=== PATIENT | female | born 1965 ===

== ENCOUNTER 2023-03-13 11:06 | Outpatient (CLI) | payer OTHER, SELFPAY ==
--- NOTE | 2023-03-13 11:31 | DI.RAD_ITS ---
Exam(s) XR HIP LT COMPLETE AP PELVIS EXAM: XR HIP LT COMPLETE AP PELVIS INDICATION: eval L hip OA. COMPARISON: CR ORTHO PELVIS AP VIEW from 03/06/2021 TECHNIQUE: 2D digital imaging was performed. Three views. FINDINGS: There is severe narrowing of the superior left hip joint space, with a [id number] appearance. Ther e is periarticular spurring, sclerosis and subchondral cyst formation. The findings have progressed from the prior exam. The right hip joint space is maintained. Of the SI joints and pubic symphysis are unremarkable. Advanced degenerative changes are noted in the lower lumbar spine. IMPRESSION: Severe degenerative changes of the left hip. DATA REPOSITORY: RADIATION DOSE DELIVERED:
== END 2023-03-13 11:07 | disposition home or self-care (01) ==
LOC: DIORS 11:06
PROVIDERS: PCP Family Medicine; Referring Provider Family Medicine; Visit Provider Student in an Organized Health Care Education/Training Program
DX: M16.12 Unilateral primary osteoarthritis, left hip (principal)
CPT/HCPCS: 73502

== ENCOUNTER 2023-04-23 02:20 | Outpatient (CLI) | payer OTHER, SELFPAY ==
[2023-04-23 14:51] LABS: HCT 40.2 % (36.0-46.0); MCHC 32.3 % (32.0-36.0); MCV 90 fL (80-95); MPV 9.3 fL (8.0-11.0); Platelet Count 277 10^3/uL (130-400); RBC 4.49 10^6/uL (3.93-5.22); RDW 12.5 % (11.7-14.6); RDW-SD 41.1 fL; WBC 7.03 10^3/uL (4.4-10.8)
[2023-04-23 15:11] LABS: Anion Gap 5.1 mmol/L (3-11); BUN 21 mg/dL (7-18); CO2 30.9 mmol/L (21.0-32.0); CREATININE 0.8 mg/dL (0.55-1.02); Calcium 8.8 mg/dL (8.5-10.1); Chloride 105 mmol/L (98-107); Estimated GFR 84.82 (mL/min/1.73m2); Glucose 99 mg/dL (74-106); Potassium 3.4 mmol/L (3.5-5.1); Sodium 141 mmol/L (136-145)
== END 2023-04-23 02:21 | disposition home or self-care (01) ==
LOC: LBO 02:20 → LBN 14:40
PROVIDERS: PCP Family Medicine; Visit Provider Student in an Organized Health Care Education/Training Program
DX: M25.552 Pain in left hip (principal); M16.12 Unilateral primary osteoarthritis, left hip; Z01.818 Encounter for other preprocedural examination; Z01.812 Encounter for preprocedural laboratory examination
CPT/HCPCS: 80048; 85027

== ENCOUNTER 2023-05-06 06:03 | Day surgery (SDC) | payer OTHER, SELFPAY ==
[2023-05-06] VITALS (12 sets, daily range): BP systolic 94–168; BP diastolic 58–90; PULSE 56–66; RESP 16–24; TEMP 35.9–36.6; O2SAT 96–99; BMI 49.4
--- NOTE | 2023-05-06 05:46 | ANES.PREOP_ITS ---
General Info Date of Service Date Performed: 05/06/23 Height: 5 ft 2 in Weight: 122.47 kg Body Mass Index (BMI): 49.4 Surgical Procedure: Operation Date: 05/06/23 07:50 Proposed Procedure Side Surgeon p Hip Total Hip Anterior, ACTIS Std Left Bony Chapa MD Meds Allergies and Home Medications Allergies Allergy/AdvReac Type Severity Reaction Status Date / Time lisinopril AdvReac Mild COUGH Verified 05/06/23 06:11 SEASONAL Allergy Mild Uncoded 05/06/23 06:11 Home Medication Medication Instructions Recorded aspirin 81 mg tablet,delayed 81 mg PO DAILY 01/29/23 release (Adult Aspirin Regimen) atenolol 50 mg tablet 50 mg PO DAILY 01/29/23 diltiazem HCl 120 mg 120 mg PO DAILY 01/29/23 capsule,extended release 24 hr furosemide 20 mg tablet 20 mg PO DAILY 01/29/23 levothyroxine 25 mcg capsule 25 mcg PO DAILY 01/29/23 meclizine 25 mg tablet 25 mg PO TID PRN 01/29/23 potassium chloride 20 mEq 20 meq PO DAILY 01/29/23 tablet,extended release rosuvastatin 20 mg tablet 20 mg PO DAILY 01/29/23 meloxicam 15 mg tablet 15 mg PO DAILY 04/23/23 ibuprofen 800 mg tablet 800 mg PO TID 05/06/23 Current Visit Medications: Current Medications Generic Name Dose Route Start Last Admin Trade Name Freq PRN Reason Stop Dose Admin Acetaminophen 1,000 mg 05/06/23 06:00 Acetaminophen 500 Mg Tab PO 05/06/23 18:00 PREOP LORENA Celecoxib 400 mg 05/06/23 06:00 Celecoxib 200 Mg Cap PO 05/06/23 18:00 PREOP LORENA Tranexamic Acid 1,000 mg/ 60 mls @ 360 mls/hr 05/06/23 06:00 Sodium Chloride IV 05/06/23 18:00 PREOP LORENA Cefazolin Sodium 3,000 mg/ 100 mls @ 200 mls/hr 05/06/23 06:00 Sodium Chloride IVPB 05/06/23 16:00 PREOP LORENA Ringer's Solution 1,000 mls @ 80 mls/hr 05/06/23 06:00 IV 06/04/23 23:59 INFUSION [facility] IV Miscellaneous Supplies 1 each 05/06/23 06:00 Iv Access IV 06/04/23 23:59 DIRECTED LORENA Sodium Chloride 0 ml 05/06/23 06:00 Normal Saline Flush 10 Ml Syr IV 06/04/23 23:59 PRN PRN Sodium Chloride 0 ml 05/06/23 06:00 Normal Saline 10 Ml Vial IJ 06/04/23 23:59 DIRECTED PRN Sterile Water 0 ml 05/06/23 06:00 Water,Injection,Sterile 10 Ml Vial IJ 06/04/23 23:59 DIRECTED PRN PFSH Active Problems Active Problems: Problem Status Onset Code Aortic root dilatation I77.810 Aortic valve stenosis I35.0 Asthma J45.909 Hypertension I10 Chest pain R07.9 GERD (gastroesophageal reflux disease) K21.9 Hyperlipidemia E78.5 Hypothyroidism E03.9 Obesity E66.9 Osteoarthritis of left hip M16.12 Medical History Medical History Aneurysm Per pt. states it was right at the arch, and had it surgically corrected when i did the valve replacement 2006 Esophagitis Migraine Surgical History Surgical History (Updated 05/06/23 @ 06:16 by Nano Marquez) H/O: hysterectomy History of aortic valve replacement 2006-f/U with cardiology 01/2023 History of carpal tunnel release of both wrists History of laparoscopic cholecystectomy History of surgery on left wrist History of tonsillectomy and adenoidectomy uvular removed pt. reports Hx of colonoscopy Previous section Tobacco Smoking/Tobacco Use Status: Former Tobacco Use Alcohol Alcohol Intake: never Substance Use Substance use: Daily Substance use type: marijuana Vital Signs and Lab Results Vital Signs Comment Vital Signs Comment:: Temp Pulse Resp BP Pulse Ox 36.5 C 65 18 168/83 H 99 05/06/23 06:20 05/06/23 06:20 05/06/23 06:20 05/06/23 06:20 05/06/23 06:20 Lab Results Blood Type / Crossmatch: No Data to Display Complete Blood Count: White Blood Count 7.03 10^3/uL (4.4-10.8) 04/23/23 14:30 Red Blood Count 4.49 10^6/uL (3.93-5.22) 04/23/23 14:30 Hemoglobin 13.0 g/dL (11.2-15.7) 04/23/23 14:30 Hematocrit 40.2 % (36.0-46.0) 04/23/23 14:30 Platelet Count 277 10^3/uL (130-400) 04/23/23 14:30 Complete Metabolic Panel: Sodium 141 mmol/L (136-145) 04/23/23 14:30 Potassium 3.4 mmol/L (3.5-5.1) L 04/23/23 14:30 Chloride 105 mmol/L (98-107) 04/23/23 14:30 Carbon Dioxide 30.9 mmol/L (21.0-32.0) 04/23/23 14:30 BUN 21 mg/dL (7-18) H 04/23/23 14:30 Creatinine 0.8 mg/dL (0.55-1.02) 04/23/23 14:30 Est GFR (CKD-EPI 2020) 84.82 (mL/min/1.73m2) 04/23/23 14:30 Calcium 8.8 mg/dL (8.5-10.1) 04/23/23 14:30 Glucose 99 mg/dL (74-106) 04/23/23 14:30 Liver Function Panel: No Data to Display Coagulation Panel: No Data to Display Cardiac Panel: No Data to Display Arterial Blood Gas: No Data to Display Venous Blood Gas: No Data to Display Pancreas Panel: No Data to Display Thyroid Panel: No Data to Display Infectious Disease: No Data to Display Blood Cultures: No Data to Display Toxicology Panel: No Data to Display Anesthesia Assessment and Plan Anesthesia History Personal History: No History of Anesthesia Complications Family History: No Family History of Anesthesia Complications Exercise Tolerance Exercise Tolerance: Metabolic Equivalents<4 Pertinent Negatives Pertinent Negatives: No Symptoms of GERD (off meds right now, occ GeRd, none today), No Major Cardiovascular Symptoms or Complaints and No Major Pulmonary Symptoms or Complaints Cardiac & Pulmonary Exam Cardiac Exam: Normal S1/S2 Heart Sounds Pulmonary Exam: Clear Bilateral Breath Sounds Cardiac and Pulmonary Comment:: Hx of AVR and aortic root repair 10/2022 EKG normal, Stress test with SPECT imaging negative, Angiogram non- obstructive coronary artery disease per [facility] [place] Implantable Cardiac Device Does patient have a Pacemaker or an ICD?: No Airway Exam Known Difficult Airway: No Mallampati Class: 4 Mouth Opening: Normal (> 3cm) Thyromental Distance: Greater than 3 cm Neck Range of Motion: Full ROM Neck Circumference: Thick Teeth Condition: Removable Dentures/Plates Upper and Edentulous ASA Classification ASA Score: ASA 3 Emergency Case?: No NPO Status NPO Status: NPO Clears >2 hours, Solids >8 hours Anesthesia Plan Resuscitation Status: Full Code Anesthesia Technique: Spinal Anesthesia Airway Planned: Natural Airway Monitors Used: Standard Monitors
[2023-05-06] MEDS: Celecoxib 200 MG CAP 400 MG PO (06:33)
[2023-05-06] MEDS: Acetaminophen 500 MG TAB 1000 MG PO (06:33)
--- NOTE | 2023-05-06 07:00 | DI.RAD_ITS ---
Exam(s) XR HIP LT IN OR EXAM: XR HIP LT IN OR CLINICAL HISTORY: left osteoarthritis TECHNIQUE: 2D and realtime digital imaging was performed. CONTRAST MATERIAL: Refer to procedure report. COMPARISON: CR XR HIP LT COMPLETE AP PELVIS from 03/13/2023 FINDINGS: Fluoroscopy was provided for Dr. Chapa during the performance of a left total hip replacement. P lease refer to the procedure report for complete details. Ka,r=6.28 mGy IMPRESSION: RADIATION DOSE DELIVERED:
[2023-05-06] MEDS: Lactated Ringers 1,000 ML 80 ML IV (07:15)
--- NOTE | 2023-05-06 07:17 | PDOC.DSDIS_ITS ---
Date of service: 05/06/23 Time of Service: 07:17 Discharge Plan Disposition Patient Disposition: Home Condition: Good Discharge Details Reason For Visit: L THR Attending Provider: Bony Chapa Primary Care Provider: CELENA ZIMMER Home Meds and New Rx's Prescriptions: New acetaminophen 500 mg tablet 1,000 mg PO TID Qty: 90 3RF aspirin 81 mg tablet,delayed release (DR/EC) 81 mg PO BID Qty: 60 0RF celecoxib 200 mg capsule 200 mg PO BID Qty: 60 0RF pantoprazole 40 mg tablet,delayed release (DR/EC) 40 mg PO DAILY Qty: 30 0RF dexamethasone 4 mg tablet 4 mg PO DAILY Qty: 2 0RF oxycodone 5 mg tablet 5 mg PO Q4H MDD 6 tabs PRN (Reason: pain) Qty: 20 0RF Continued atenolol 50 mg tablet 50 mg PO DAILY diltiazem HCl 120 mg capsule,extended release 24hr 120 mg PO DAILY furosemide 20 mg tablet 20 mg PO DAILY levothyroxine 25 mcg capsule 25 mcg PO DAILY meclizine 25 mg tablet 25 mg PO TID PRN potassium chloride 20 mEq tablet extended release 20 meq PO DAILY rosuvastatin 20 mg tablet 20 mg PO DAILY Discontinued meloxicam 15 mg tablet 15 mg PO DAILY aspirin [Adult Aspirin Regimen] 81 mg tablet,delayed release (DR/EC) 81 mg PO DAILY ibuprofen 800 mg Tablet 800 mg PO TID Discharge Instructions Additional Instructions: Total Hip Discharge Instructions Activity: The most important activity is to walk. You should try to take short walks a few times a day. You have no restrictions on movement or positioning, but do not try to force what you do. You will find some stiffness and weakness with hip flexion (lifting your knee). Do not try to strengthen this too early, continue to practice walking and stairs and this will come. - Outpatient physical therapy can be helpful to help return you to a normal gait and improve your flexibility and strength. This can start around 2 weeks. For some patients, it?s not necessary. Usually this is determined at the time of discharge or at the first post-operative visit. - You should wear the ARNALDO hose on both legs for 2 weeks. Dressing: Keep the surgical dressing in place for at least one week. After the first week it may be removed and replace with light gauze and tape or nothing. It may get wet after 3 days but avoid soaking the dressing. If it gets wet, just lightly pat dry. It is important to always keep some gauze between skin folds, especially when you are sitting. Spend some time with the wound exposed when you are lying flat as the incision does wrinkle onto itself. Medications: - You should take Tylenol and an anti-inflammatory Celebrex as your primary pain control medications. If the Celebrex is too expensive or not covered, please call the office for another alternative (Advil/Ibuprofen or Naproxen/Aleve). - You have been prescribed a stronger pain medication Oxycodone for breakthrough pain, take as needed as prescribed. - You have also been prescribed a stomach acid reduction agent Pantoprozole to help reduce stomach acid and reflux. - You have also been prescribed Decadron to help with post-operative nausea and pain. You will take this for two days starting tomorrow. - You will be taking Aspirin 81mg twice a day for DVT prevention unless instructed otherwise. - If you have constipation you should take Colace or Miralax (both [id number]). It takes most people 3-4 days to have a bowel movement. Follow-up: 2 weeks If you have any acute concerns or questions, please do not hesitate to contact the office at [phone]. You may contact Dr. Chapa with any questions after hours through the hospital at [phone] or on his cell phone at [phone]. Referrals: Bony Chapa MD [ [facility] STAFF PHYSICIAN] - Equipment/Supplies: Walker Activity:: Activity as Tolerated Shower/Bathe:: 72 hours Diet:: As Tolerated DS: Diagnosis Discharge Diagnosis (1) Osteoarthritis of left hip: Status: Acute
[2023-05-06] MEDS: ceFAZolin 3,000 MG in Normal Saline 100 ML 200 MG IVPB (07:24)
--- NOTE | 2023-05-06 09:00 | PDOC.DSDIS_ITS ---
Date of service: 05/06/23 Time of Service: 09:03 Discharge Plan Disposition Patient Disposition: Home Condition: Good Discharge Details Reason For Visit: L THR Attending Provider: Bony Chapa Primary Care Provider: CELENA ZIMMER Home Meds and New Rx's Prescriptions: New acetaminophen 500 mg tablet 1,000 mg PO TID Qty: 90 3RF aspirin 81 mg tablet,delayed release (DR/EC) 81 mg PO BID Qty: 60 0RF celecoxib 200 mg capsule 200 mg PO BID Qty: 60 0RF pantoprazole 40 mg tablet,delayed release (DR/EC) 40 mg PO DAILY Qty: 30 0RF dexamethasone 4 mg tablet 4 mg PO DAILY Qty: 2 0RF oxycodone 5 mg tablet 5 mg PO Q4H MDD 6 tabs PRN (Reason: pain) Qty: 20 0RF Continued atenolol 50 mg tablet 50 mg PO DAILY diltiazem HCl 120 mg capsule,extended release 24hr 120 mg PO DAILY furosemide 20 mg tablet 20 mg PO DAILY levothyroxine 25 mcg capsule 25 mcg PO DAILY meclizine 25 mg tablet 25 mg PO TID PRN potassium chloride 20 mEq tablet extended release 20 meq PO DAILY rosuvastatin 20 mg tablet 20 mg PO DAILY Discontinued meloxicam 15 mg tablet 15 mg PO DAILY aspirin [Adult Aspirin Regimen] 81 mg tablet,delayed release (DR/EC) 81 mg PO DAILY ibuprofen 800 mg Tablet 800 mg PO TID Discharge Instructions Additional Instructions: Total Hip Discharge Instructions Activity: The most important activity is to walk. You should try to take short walks a few times a day. You have no restrictions on movement or positioning, but do not try to force what you do. You will find some stiffness and weakness with hip flexion (lifting your knee). Do not try to strengthen this too early, continue to practice walking and stairs and this will come. - Outpatient physical therapy can be helpful to help return you to a normal gait and improve your flexibility and strength. This can start around 2 weeks. For some patients, it?s not necessary. Usually this is determined at the time of discharge or at the first post-operative visit. - You should wear the ARNALDO hose on both legs for 2 weeks. Dressing: Keep the surgical dressing in place for at least one week. After the first week it may be removed and replace with light gauze and tape or nothing. It may get wet after 3 days but avoid soaking the dressing. If it gets wet, just lightly pat dry. It is important to always keep some gauze between skin folds, especially when you are sitting. Spend some time with the wound exposed when you are lying flat as the incision does wrinkle onto itself. Medications: - You should take Tylenol and an anti-inflammatory Celebrex as your primary pain control medications. If the Celebrex is too expensive or not covered, please call the office for another alternative (Advil/Ibuprofen or Naproxen/Aleve). - You have been prescribed a stronger pain medication Oxycodone for breakthrough pain, take as needed as prescribed. - You have also been prescribed a stomach acid reduction agent Pantoprozole to help reduce stomach acid and reflux. - You have also been prescribed Decadron to help with post-operative nausea and pain. You will take this for two days starting tomorrow. - You will be taking Aspirin 81mg twice a day for DVT prevention unless instructed otherwise. - If you have constipation you should take Colace or Miralax (both [id number]). It takes most people 3-4 days to have a bowel movement. Follow-up: 2 weeks If you have any acute concerns or questions, please do not hesitate to contact the office at [phone]. You may contact Dr. Chapa with any questions after hours through the hospital at [phone] or on his cell phone at [phone]. Referrals: Bony Chapa MD [ [facility] STAFF PHYSICIAN] - Equipment/Supplies: Walker Activity:: Activity as Tolerated Shower/Bathe:: 72 hours Diet:: As Tolerated DS: Diagnosis Discharge Diagnosis (1) Osteoarthritis of left hip: Status: Acute
[2023-05-06] MEDS: fentaNYL 100 MCG/2 ML VIAL IVP ×4 (09:05→09:45)
--- NOTE | 2023-05-06 09:08 | W.PM.OP ---
Date of service: 05/06/23 Time of Service: 08:45 Operative Note Operative Note DATE OF PROCEDURE: 05/06/23 PRE-OP DIAGNOSIS: Left Hip Osteoarthritis POST-OP DIAGNOSIS: same PROCEDURE: Left Anterior Total Hip Arthroplasty with Intraoperative Navigation SURGEON: Bony Chapa PEARLER: Ashkan Hopper ANESTHESIA TYPE: Spinal Refer to Anesthesia Record ESTIMATED BLOOD LOSS: 150 PATHOLOGY: none sent TOURNIQUET TIME: 0 COMPLICATIONS: None Patient was transported to: PACU Patient's condition: stable Implants: 1. Depuy [place] Acetabular Component, 52mm 2. Depuy Acetabular Liner, [id number] 3. Depuy Actis Standard Collared Femoral Stem, Size 4 4. Depuy Altrx Ceramic Femoral Head, Size 36+1.5mm Indications: I have seen Carol Ann in clinic for symptoms of hip arthritis, confirmed with radiographic findings. She has exhausted nonoperative methods and was having significant limitations in daily function and desired better function and less pain. I discussed the technical details of a hip replacement. I explained the risks of the procedure to include, but not limited to, bleeding, infection, pain, stiffness, fracture, damage to nerves and vessels, damage to muscles and tendons, loosening, instability, leg length inequality, need for repeat procedure, blood clot and cardiopulmonary demise. Despite these risks, Carol Ann elected to proceed. Findings: There was significant signs of arthritis throughout the hip with complete loss of cartilage and large osteophytes. Procedure Description: Carol Ann was greeted in the preoperative holding area where the correct side was identified and marked. The consent was reviewed with the patient and signed. The history and physical was updated. All questions were answered. She was taken back to the operating room. A spinal anesthestic was then administered. The feet were wrapped with cast padding and Coban and then placed into the boot liners and then into the boots. Care was taken to protect the skin and make sure the heels were fully down and the boots were stable. The patient was then positioned onto the HANA table. Both legs were held in a neutral position. SCDs were applied. The patient was then slid down onto a peroneal post. Prophylactic antibiotics in the form of Cefazolin were administered. 1g of Tranxemic Acid was given intravenously within 30 minutes of incision. The left leg was then prepped with Chloraprep and draped in a standard fashion. A second prep with Chloraprep was performed prior to placement of a shower-curtain type drape with Iodine impregnated skin protection. A timeout to confirm correct identity, side and site, procedure, allergies, anesthesia, and medical concerns was performed. An obliquely oriented incision was made starting lateral to the ASIS and running distal over the Tensor Fascia Violeta (TFL) muscle belly toward the fibular head, approximately 10cm. The skin and soft tissue was dissected sharply, through Gloria?s fascia, and to the fascia of the TFL. With the fascia and superior border of the IT band identified, the fascia was incised with a new knife just above any perforators from the IT band. The TFL muscle belly was bluntly dissected away from the fascia and moved laterally. The fat between TFL and rectus was identified to ensure the dissection was not within the TFL. Blunt dissection created space between abductors and the capsule and retractor was placed over the lateral femoral neck. The fibers of the rectus femoris tendon were identified and these were freed from the anterior capsule. A second cobra retractor was placed around the medial femoral neck. The TFL was further retracted laterally to show the deep fascia. Careful dissection through this layer identified three main crossing vessels of the lateral femoral circumflex. These were cauterized in multiple locations and then cut without any noticeable bleeding. The TFL was further released bluntly from the deep fascia to expose anterior hip capsule and fat The Bernardo orthopaedic retractor was then placed beneath the TFL and against sartorius and medial soft tissues to protect and retract the soft tissues. A T-capsulotomy was then performed starting at the superior lateral acetabulum and moving distally to the intertrochanteric ridge. These capsular flaps were tagged with a No. 1 Ethibond and elevated from within. The capsular flaps were released to the shoulder of the lateral neck and to the lesser trochanter to give excellent visualization of the proximal femur. A neck osteotomy was performed using an oscillating saw based on preoperative templates. This cut started in the shoulder and of the lateral neck and exited medially. The saw was at all times directed medially to avoid injury to the greater trochanter. Gross traction was applied to the leg and the osteotomy opened. The femoral head was removed with a corkscrew, making sure to protect the TFL on its exit. Traction was released after head removal. This was measured on the back table to determine the starting reamer size. Portions of the rectus obscuring visualization were minimally elevated off the superior acetabulum. An anterior retractor was placed over the anterior wall between capsule and labrum and attached to the Gripper retraction system. The femur was rotated to 90 degrees and medial capsule was fully released until the lesser trochanter was palpable and visible; the femur was returned to 30 degrees. A posterior retractor was placed similarly between capsule and labrum. This provided excellent visualization. The contents of the cotyloid fossa were removed with electrocautery and the labrum was removed with a knife. There was a notable floor osteophyte. There was significant chondromalacia of the superior acetabulum. Acetabular reaming began with a 48mm reamer. This first reaming was directed anterior to posterior and medial to get down to the true floor. This was inspected and reamed until the true floor was reached. The anterior retractor was then released and entry and exit was provided by traction on the capsular flaps. I then reamed sequentially up to a 52mm reamer where good fit was obtained. The larger reamers were oriented based on anatomical reference of the anterior and lateral alcantar to ensure proper abduction and anteversion. Positioning and size was confirmed with the fluoroscopy. A 52mm Depuy [place] acetabular component was selected. The acetabulum was reamed around the periphery with the selected acetabular size to prevent a rim fit. The deep tissues were irrigated. The acetabular component was then impacted in a position of about 40-45 degrees of abduction and 15-20 degrees of anteversion, using the patient?s anatomy as the ultimate landmark. Fluoroscopy was used to confirm this. There was excellent administrative assistant receptionist of the acetabular component and the inserting handle was removed. The acetabular liner, Depuy [id number] polyethylene liner, was inserted and lined up with the tines of the acetabular component. There was no soft tissue interposition. The liner was then impacted into position and confirmed to be well-seated. A portion of the dillon-articular cocktail was then injected around the acetabulum into the capsule and periosteum. This cocktail consisted of 123mg of Ropivacaine, 0.25mg of Epinephrine, 0.04mg of Clonidine, and 15mg of Ketorolac, diluted to 50cc. The leg was rotated to 120 degrees. Any remaining medial capsule was released until the lesser trochanter was easily palpable. A retractor was placed medially. The lateral capsule was further released into the shoulder to allow access to the greater trochanter. A Duque retractor was placed over the greater trochanter which allowed the trochanter to flip in front of the capsule for excellent exposure. The leg was brought down into maximal extension and 20 degrees of adduction while ensuring there was no impingement on the acetabulum. Any remnant capsule within the trochanter was released. Piriformis and obturator externis were identified and protected. There was excellent access to the proximal femur. The lateral neck remnant was removed with a rongeur. A blunt canal probe was used to identify the canal and trajectory for later broaching. A box osteotome initiated the broach course. A small curved rasp and a curved curette were used to work laterally. Broaching then began with a starter Actis broach. This was inserted manually around the trochanter and into the canal before mallet blows. The broach was seated to a few millimeters below the cut level based on the neck cut and the preoperative template. Sequential broaching was continued with the GrouPAYse pneumatic broaching device until a tight fit was obtained with good rotational control of the femur. A trial standard neck was inserted along with a +1.5 trial head. The leg was brought out of extension and adduction and then reduced with traction and internal rotation. The leg was stable anteriorly in a position of 30 degrees of extension and 90 degrees of external rotation. Fluoroscopy was used to ensure there was no fracture and the stem was seated well. Leg lengths were checked with an AP pelvis and pelvic reference points. [employer] navigation system was used to confirm appropriate positioning and leg length and offset. Once content with the desired offset and leg lengths, the leg was brought back into extension, external rotation and adduction. The periosteum and surrounding tissue was injected with remaining portion of the dillon-articular cocktail. The proximal femur was irrigated as well as the deep tissues. The [employer] standard collared stem, size 4, was then manually inserted into the proximal femur making sure to control rotation. It was then malleted into position with light blows, giving breaks to allow bone expansion and decrease risk of fracture. The selected Depuy Altrx Ceramic Head, size 36+1.5mm, was then placed onto the clean and dry trunnion and secured with impaction onto the tapered fit. The leg was brought back out of extension and adduction and reduced with traction and internal rotation. Stability was confirmed with no shuck at 90 degrees of external rotation and 30 degrees of extension. No impingement through range of motion arc. Final x-ray images were obtained with fluoroscopy to confirm adequate positioning and no intraoperative fracture. The deep tissues were thoroughly irrigated with Surgiphor, betadine solution. This was allowed to sit in the wound for 3 minutes before being thoroughly irrigated out with normal saline. The capsule was then reapproximated with the previously placed Ethibond sutures. The TFL fascia was finally closed with a No. 2 Stratafix, barbed suture. Deep tissues were then reapproximated with 0 Vicryl and a running 2-0 Vicryl. The skin was closed with a running 4-0 Monocryl in a subcuticular fashion. This was reinforced with skin glue. A Mepilex silver dressing was applied. At the end of the case, all counts were correct. Carol Ann was transferred to the hospital bed without difficulty and suffering no apparent complication. Carol Ann has a good prognosis. Physical therapy will start today and without restrictions, weight-bearing as tolerated. Aspirin 81mg BID will be used for DVT prophylaxis.
[2023-05-06] MEDS: oxyCODONE 5 MG TAB PO ×2 (10:22→10:59)
--- NOTE | 2023-05-06 11:25 | IN_ITS ---
PT Notes Visit Reasons: L THR Physical Therapy Day Surgery Initial Evaluation Date: 05/06/2023 Referring Doctor: TERRELL Zamora PT Orders: PT CONSULT: S/P ortho Surgery Precautions: WBAT on left LE with AD. Patient Profile/Admitting Diagnosis: Katelyn is a 58-year-old female with degenerative joint disease of the left hip and is status post left anterior total hip arthroplasty on postoperative day 0. PMHX: Medical History?(Updated 03/13/23 @ 10:51 by Bony Chapa MD) Aneurysm Esophagitis Migraine Surgical History?(Updated 01/29/23 @ 10:14 by Adalberto Rueda RN) H/O: hysterectomy History of aortic valve replacement History of laparoscopic cholecystectomy History of tonsillectomy and adenoidectomy Previous section Social History/Home Situation: Independent with all aspects of ADLs prior to surgery. Works in a [email or web address] in [place], [place]. Equipment Owned/DME: None Subjective: Reports pain in L hip and thigh at 5-6/10. Nurse Starks aware. Patient needed to use bathroom before arrival of PT and was able to safely transfer to and from toilet seat with assistance of Nurse Starks. Objective: General Observation: Seated on bedside chair. Mepilex Ag over surgical incision. TEDS to be legs. High BMI. Mental Status: Alert and oriented x4 Pain: 5?6/10 in the left hip and thigh ROM: Right Lower Extremity: Hip flexion WFL. Hip abduction WFL. Knee flexion WFL. Ankle dorsiflexion WFL. Ankle plantarflexion WFL. Left Lower Extremity: Hip flexion lacks the last 25% of AROM due to discomfort. Hip abduction WFL. Knee flexion WFL. Ankle dorsiflexion WFL. Ankle plantarflexion WFL. Strength: Right Lower Extremity: Hip flexors 5/5. Hip abductors 5/5. Knee flexors 5/5. Knee extensors 5/5. Ankle dorsiflexors 5/5. Ankle plantarflexors 5/5. Left Lower Extremity:Hip flexors 4-but /5. Hip abductors 4-/5. Knee flexors 5/5. Knee extensors 5/5. Ankle dorsiflexors 5/5. Ankle plantarflexors 5/5. Sensation: Some numbness in distal L thigh otherwise normal in the rest of her B LE Bed Mobility/Transfers: Sit to stand standby assist with cues for hand placement and safety techniques Stand to sit standby assist with cues for hand placement and safety techniques Bed to chair standby assist with cues for hand placement and safety techniques Gait: Guided patient with level surface ambulation of 150 feet using front wheeled walker with a step to gait pattern requiring standby assist and minimal verbal cueing for correct gait pattern and AD management. No LOB. No report of increased pain with weightbearing. Stairs: Facilitated safe performance of stair negotiation of 3 x 4-inch steps while holding onto the rails with step to gait pattern and contact-guard assist. Balance: Static Sitting: Normal Dynamic Sitting: Normal Static Standing: Fair Dynamic Standing: Fair Special Tests: Mobility Limitations Standardized Measure [facility] 6 clicks Basic Mobility Inpatient Short Form: Raw Score: 23 CMS Score: 11% deficit Informed Consent/Education: Patient instructed in purpose of PT consult. Packet containing [place] exercise protocol has been given to patient. Trained patient with correct performance of exercises below to maximize motor control, joint flexibility, soft tissue extensibility of the L hip musculature to facilitate return to independent functional mobility performance. Access Code: [email or web address] URL: [email or web address] Date: 05/06/2023 Prepared by: Sunshine Prater Exercises - Gluteal Sets - 1 x daily - 7 x weekly - 1 sets - 10 reps - 5 hold - Supine Heel Slide - 1 x daily - 7 x weekly - 1 sets - 10 reps - 5 hold - Supine Ankle Pumps - 1 x daily - 7 x weekly - 1 sets - 10 reps - 5 hold - Seated March - 1 x daily - 7 x weekly - 1 sets - 10 reps - 5 hold - Seated Long Arc Quad - 1 x daily - 7 x weekly - 1 sets - 10 reps - 5 hold Assessment: Patient requires the use of a front wheel walker for all mobility ADL performance to maximize independence and reduce fall risk. Patient presents with clinical signs and symptoms consistent with current/admitting diagnoses that have resulted to mobility limitations, gait instability, generalized weakness, and impairment of motor control as demonstrated by the following impairment level findings: 1. Decreased strength to left hip major muscle groups 2. Impaired standing balance 3. Limitation of joint range of motion in left hip Impairments are contributing to the following functional limitations: 1. Inability to safely ambulate without assistive device 2. Increase completion time for mobility ADL performance 3. Increased fall risk Patient is assessed as a 74519 moderate complexity based on the following: History: 58-year-old female with impairment level findings, functional limitations, and past medical history as indicated above Examination: Demonstrable impairment in strength, balance, and mobility level with underlying impairments and functional limitations as documented above Presentation: Evolving Decision Makin moderate complexity Goals: N/A. PT evaluation and 1-2 treatment sessions only for functional mobility training using recommended AD and for HEP instruction. Plan of Care/Treatment Plan: N/A. PT evaluation and 1-2 treatment session only for functional mobility training using recommended AD and for HEP instruction. DISCHARGE RECOMMENDATIONS: Home when medically cleared by orthopedic surgeon. Recommend outpatient PT services in order to optimize functional mobility outcomes and facilitate return to independent community ambulation without an assistive device. TREATMENT CODE/TIME: 21724 x 21 minutes for 1 unit beginning at 11:25 AM. Thank you for the opportunity to participate in the care of this patient. Sunshine Prater PT, DPT, CLT [facility] [place], [place]
--- NOTE | 2023-05-06 12:21 | W.ANESPOSTOP ---
Postoperative Evaluation Date, Time and Location Date Performed: 05/06/23 Time Performed: 11:22 Patient Location: Day Surgery Unit Vital Signs Most Recent Imported Vital Signs: Most Recent Vital Signs Temp Pulse Resp BP Pulse Ox 36.0 C L 62 18 136/68 98 05/06/23 10:40 05/06/23 10:40 05/06/23 10:40 05/06/23 10:40 05/06/23 10:40 Pain Score Most Recent Pain Score: Most Recent Pain Score Pain Level 7 05/06/23 10:40 Assessment Mental Status: Awake (Alert & Oriented to Patient Baseline) Airway and Respiratory Function: Patent airway with normal (patient baseline) respiratory exam Cardiovascular Function: Hemodynamically Stable Hydration Status: Adequately Hydrated Nausea & Vomiting: No Nausea or Vomiting Pain: Pain is Moderate or Severe Postoperative Pain Management: Pain being addressed with medication Peripheral Nerve Block: Patient did not receive a nerve block
== END 2023-05-06 12:37 | disposition home or self-care (01) ==
PROVIDERS: PCP Family Medicine; Visit Provider Student in an Organized Health Care Education/Training Program
PROC: (CPT 27130; principal; 2023-05-06 07:30)
DX: M16.12 Unilateral primary osteoarthritis, left hip (principal); E66.9 Obesity, unspecified; Z68.42 Body mass index [BMI] 45.0-49.9, adult; E78.5 Hyperlipidemia, unspecified; I10 Essential (primary) hypertension; J45.909 Unspecified asthma, uncomplicated; K21.9 Gastro-esophageal reflux disease without esophagitis; E03.9 Hypothyroidism, unspecified
CPT/HCPCS: 27130; 20985; 97162; 73501; J0690; J1100; J2001; J2250; J2405; J3010

== ENCOUNTER 2023-05-18 10:58 | Outpatient (CLI) | payer OTHER, SELFPAY ==
--- NOTE | 2023-05-18 10:45 | DI.RAD_ITS ---
Exam(s) XR HIP LT COMPLETE AP PELVIS EXAM: XR HIP LT COMPLETE AP PELVIS CLINICAL HISTORY: 1ST POST OP L [facility]. TECHNIQUE: 2D digital imaging was performed. Two views. COMPARISON: CR XR HIP LT COMPLETE AP PELVIS from 03/13/2023 XA XR HIP LT IN OR from 05/06/2023 FINDINGS: BONES: No acute fracture is present. No bony destructive lesion is seen. JOINTS: No dislocation present. A left hip prosthesis is in place. The alignment appears satisfact ory. The right hip shows minimal acetabular spurring. SOFT TISSUE: Normal. IMPRESSION: Unremarkable left hip prosthesis. DATA REPOSITORY: RADIATION DOSE DELIVERED:
== END 2023-05-18 10:59 | disposition home or self-care (01) ==
LOC: DIORS 10:59
PROVIDERS: PCP Family Medicine; Visit Provider Student in an Organized Health Care Education/Training Program
DX: Z96.642 Presence of left artificial hip joint (principal); Z47.1 Aftercare following joint replacement surgery
CPT/HCPCS: 73502